=== PATIENT | male | born 1995 | race Caucasian/White ===

== ENCOUNTER 2022-01-06 08:00 | Outpatient (CLI) | payer MEDICAID ==
--- NOTE | 2022-01-06 10:47 | XRAY Report ---
PROCEDURE: Chest 2 View X-Ray INDICATIONS: CHEST PAIN TECHNIQUE: 2 view(s) of the chest. COMPARISON: None. FINDINGS: Surgical changes and devices: None. Lungs and pleura: No pleural effusions or pneumothorax. Lungs are clear. Mediastinum: Mediastinal contours are normal. Heart size is normal. Bones and chest wall: No suspicious bony abnormalities. Soft tissues appear unremarkable. IMPRESSION: No acute cardiopulmonary pathology. Reviewed by: Ashish Diana MD on 01/06/2022 10:46 AM PDT Approved by: Ashish Diana MD on 01/06/2022 10:46 AM PDT Station ID: [id number]
== END 2022-01-06 23:59 | disposition home or self-care (01) ==
LOC: DI.S 08:00
PROVIDERS: ATTEND Physician Assistant Medical
DX: R07.1 Chest pain on breathing (principal)

== ENCOUNTER 2022-01-06 20:19 | Emergency (ER) | payer MEDICAID ==
[2022-01-06 21:38] LABS: BASOPHILS # (AUTO) 0.1 10^3/uL (0.0-0.1); BASOPHILS % (AUTO) 0.5 %; EOSINOPHILS # (AUTO) 0.2 10^3/uL (0.0-0.7); EOSINOPHILS % (AUTO) 2.2 %; HCT - HEMATOCRIT 43.3 % (42.0-52.0); HGB - HEMOGLOBIN 14.1 g/dL (14.0-18.0); LYMPHOCYTES # (AUTO) 1.1 10^3/uL (1.5-3.5); LYMPHOCYTES % (AUTO) 10.6 %; MEAN CORPUSCULAR HGB CONC 32.6 g/dL (32.0-36.0); MEAN CORPUSCULAR VOLUME 95.2 fL (80.0-94.0); MEAN PLATELET VOLUME 9.8 fL (7.4-11.4); MONOCYTES # (AUTO) 1.3 10^3/uL (0.0-1.0); MONOCYTES % (AUTO) 12.7 %; NEUTROPHILS # (AUTO) 7.3 10^3/uL (1.5-6.6); NEUTROPHILS % (AUTO) 73.6 %; PLT - PLATELET COUNT 220 10^3/uL (130-450); RED BLOOD COUNT 4.55 10^6/uL (4.70-6.10); RED CELL DISTRIBUTION WIDTH 12.5 % (12.0-15.0); WHITE BLOOD COUNT 9.9 x10^3/uL (4.8-10.8)
--- NOTE | 2022-01-06 21:42 | ED Physician Documentation ---
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 No dyspnea per se. No recent URI symptoms. Works doing tree removal so physical work, but denies recent particular injury/chest impact.) Timing - onset during: Rest Timing - details: Abrupt onset, Still present (undulating during the day but still present.) Quality: Aching, Sharp, Pain Location: Substernal, Left chest Radiation: Back. No: Jaw, Neck, Abdominal Improved by: No: Rest Worsened by: Inspiration, Position. No: Eating, Movement, Palpation Associated symptoms: Feeling faint / dizzy. No: Shortness of air, Nausea, General Weakness, Palpitations, Cough Similar symptoms before: Has not had sx before Recently seen: Clinic (went to Walk In today and had CXR and ECG that were normal. Presumed pleurisy based on symptoms. Told to take Ibuprofen TID. He is having persistent/worse pain so here for question of other pain med.), Other (Had COVID vaccine 2 years ago (J&J) then Moderna booster last year. Had COVID infection 2 months ago with mild symptoms that resolved over a week. Normal activity ability after.) Review of Systems Constitutional: denies: Fever, Chills, Myalgias, Fatigue, Weight Loss Nose: denies: Rhinorrhea / runny nose, Congestion Throat: denies: Sore throat Cardiac: reports: Chest pain / pressure. denies: Palpitations, Pedal edema, Calf pain Respiratory: denies: Cough, Wheezing GI: denies: Abdominal Pain, Nausea, Vomiting, Diarrhea Skin: denies: Rash, Lesions Neurologic: denies: Generalized weakness, Near syncope PD PAST MEDICAL HISTORY - Past Medical History Cardiovascular: None Respiratory: None Neuro: None Endocrine/Autoimmune: None Psych: Depression (mild in the past and is on citalopram regularly. ) Musculoskeletal: None - Present Medications Home Medications: Ambulatory Orders Medication Instructions Recorded Confirmed Citalopram Hydrobromide 40 mg PO DAILY 01/06/22 01/06/22 [Citalopram HBr] - Allergies Allergies/Adverse Reactions: Allergies Allergy/AdvReac Type Severity Reaction Status Date / Time No Known Drug Allergies Allergy Verified 01/06/22 20:23 - Living Situation Living Situation: reports: With family Living Arrangement: reports: At home - Social History Does the pt smoke?: No Does the pt drink ETOH?: No Does the pt have substance abuse?: No - Family History Family history: reports: CAD. denies: Sudden , Aortic dissection - Immunizations Immunizations are current?: Yes - POLST Patient has POLST: No PD ED PE NORMAL - Vitals Vital signs reviewed: Yes - General General: Alert and oriented X 3, No acute distress, Well developed/nourished - HEENT HEENT: Moist mucous membranes, Pharynx benign - Neck Neck: Supple, no meningeal sign, No adenopathy - Cardiac Cardiac: RRR, No murmur, Other (no chestwall tenderness) - Respiratory Respiratory: No respiratory distress, Clear bilaterally - Abdomen Abdomen: Soft, Non tender, Non distended - Derm Derm: Normal color, Warm and dry - Extremities Extremities: Normal ROM s pain, No edema, No calf tenderness / cord, Other (Note is made of a law enforcement tracking device on the left ankle for probation. He contacted his chief information officer to notify that he will likely be transferred [place] for medical care and was approved.) - Neuro Neuro: Alert and oriented X 3, No motor deficit, Normal speech Eye Opening: Spontaneous Motor: Obeys Commands Verbal: Oriented GCS Score: 15 Results - Vitals Vitals: Vital Signs - 24 hr 01/06/22 01/06/22 01/06/22 20:23 20:30 22:12 Temperature 36.8 C Heart Rate 70 78 76 Respiratory 16 22 21 Rate Blood Pressure 160/80 H 115/72 126/79 O2 Saturation 97 97 97 01/06/22 01/06/22 01/06/22 22:42 23:12 23:30 Temperature Heart Rate 80 69 75 Respiratory 18 20 12 Rate Blood Pressure 131/87 H 114/72 113/72 O2 Saturation 98 95 95 01/07/22 01/07/22 01/07/22 00:00 00:30 01:00 Temperature Heart Rate 69 64 68 Respiratory 17 14 18 Rate Blood Pressure 107/74 115/66 103/77 O2 Saturation 96 96 99 01/07/22 01/07/22 01/07/22 01:30 02:00 02:30 Temperature Heart Rate 60 57 L 67 Respiratory 18 16 20 Rate Blood Pressure 103/67 103/71 104/66 O2 Saturation 96 96 96 01/07/22 01/07/22 01/07/22 03:00 03:30 04:00 Temperature Heart Rate 76 57 L 58 L Respiratory 16 16 14 Rate Blood Pressure 101/66 104/66 103/69 O2 Saturation 96 96 96 01/07/22 01/07/22 01/07/22 04:30 05:00 05:15 Temperature Heart Rate 56 L 64 48 L Respiratory 16 16 19 Rate Blood Pressure 100/69 104/66 101/64 O2 Saturation 96 97 98 01/07/22 01/07/22 01/07/22 05:30 06:00 06:30 Temperature 36.4 C L Heart Rate 72 58 L 64 Respiratory 17 18 20 Rate Blood Pressure 104/56 L 102/63 104/70 O2 Saturation 96 97 94 Oxygen O2 Source Room air - EKG (time done) 20:25 Rate: Rate (enter#) (65) Rhythm: NSR Gorin: Normal Intervals: Normal GA QRS: Normal Ischemia: Normal ST segments, ST elevation c/w repol (nondiagnostic minimal upsloping ST change inferior leads - consider early repol vs inflammatory vs ischemic. No reciprocal changes though.). No: ST elevation c/w ischemia, ST depression - Labs Labs: Laboratory Tests 01/06/22 01/06/22 01/06/22 21:34 21:34 21:34 WBC 9.9 RBC 4.55 L Hgb 14.1 Hct 43.3 MCV 95.2 H MCH 31.0 MCHC 32.6 RDW 12.5 Plt Count 220 MPV 9.8 Neut # (Auto) 7.3 H Lymph # (Auto) 1.1 L Edmunds # (Auto) 1.3 H Eos # (Auto) 0.2 Baso # (Auto) 0.1 Absolute Nucleated RBC 0.00 Nucleated RBC % 0.0 Sodium 140 Potassium 4.7 Chloride 100 L Carbon Dioxide 28 Anion Gap 12.0 BUN 14 Creatinine 1.0 Estimated GFR (MDRD) 89 Glucose 111 H Calcium 9.7 Troponin I High Sens 80463.0 H* C-Reactive Protein 11.7 H B-Natriuretic Peptide SARS-CoV-2 (PCR) 01/06/22 01/06/22 01/07/22 21:34 22:29 01:28 WBC RBC Hgb Hct MCV MCH MCHC RDW Plt Count MPV Neut # (Auto) Lymph # (Auto) Edmunds # (Auto) Eos # (Auto) Baso # (Auto) Absolute Nucleated RBC Nucleated RBC % Sodium Potassium Chloride Carbon Dioxide Anion Gap BUN Creatinine Estimated GFR (MDRD) Glucose Calcium Troponin I High Sens 72987.8 H* C-Reactive Protein B-Natriuretic Peptide 142 H SARS-CoV-2 (PCR) NOT DETECTED 01/07/22 01:28 WBC RBC Hgb Hct MCV MCH MCHC RDW Plt Count MPV Neut # (Auto) Lymph # (Auto) Edmunds # (Auto) Eos # (Auto) Baso # (Auto) Absolute Nucleated RBC Nucleated RBC % Sodium Potassium Chloride Carbon Dioxide Anion Gap BUN Creatinine Estimated GFR (MDRD) Glucose Calcium Troponin I High Sens C-Reactive Protein B-Natriuretic Peptide 260 H SARS-CoV-2 (PCR) - Rads (name of study) chest xray Radiology: Prelim report reviewed (done earlier today at walk in - no acute process), See rad report PD MEDICAL DECISION MAKING - ED course Complexity details: reviewed results (His CRP is notably elevated at 11. His troponin is amazingly elevated at 11,000. Consider AL, though clinical picture more likely c/w inflammatory myocarditis. ), re-evaluated patient (The patient's age would speak against likelihood of atherosclerotic heart disease. Consider potential for coronary artery dissection or inflammatory process such as pericardial myocarditis.), considered differential (pleuritic chest pain without obvious cause, worsening through day. Can get repeat ECG and also labs to evaluate. Initial impression of pleurisy or pericarditis and so initiated Toradol and Decadron presuming those. ), d/w patient, d/w email production consultant (Other facilities in the nearby [facility] did not have any bed availability at this time. We did talk with the transfer center who would put the patient on a wait list and they did have me talk with Dr. Jay Miller who is on-call for cardiology. Dr. Miller places the patient high priority.) ED course: The patient appears well with normal vital signs and no abnormal rhythms. His EKG is minimal changes suggesting inflammatory more likely or early repolarization. However his symptom onset was just abrupt in the past day and his troponin is amazingly elevated at 11,000. I would have concern for progressive myocarditis or potential ischemic process such as dissection. I do feel he needs more appropriate evaluation and hospitalization for concerns of looking for heart failure or increased injury and evaluating for effusion and general heart function global versus local. We do not have echocardiogram available at our facility for 3 more days. We have no MRI availability. We have no stress testing available or cardiology. I feel the patient will likely need transferring and we will [facility] cardiology expresses high concern for the patient assuming myocarditis. To watch the patient for changes in vital signs or dysrhythmias and to contact them back if those develop overnight. Otherwise the hope to have space available in the morning for transfer. We are also contacting other facilities if other beds open sooner as well.A larger facility like or [facility] or such could be more appropriate anyway with the potential of needing further heart testings and even possible myocardial biopsy. At this point we are watching the patient's heart rhythm and blood pressure and degree of symptoms. We will contacted [facility] transfer center if worsening vital signs or symptoms per the direction of Dr. Miller. The patient was doing well through most of the night. He had rather frequent PVCs but did not have any symptoms. Approaching around 5 AM, the patient was noted to have some slowing of heart rate into the upper 40s and 50s from the previous 50s to 60s. Blood pressure has remained slightly soft at 100-110 systolic but did have a reading of chest at 100 systolic. He was given a small fluid bolus and his blood pressure increased a bit. The patient is not having any symptoms of chest pain or lightheadedness with this. Per the direction of cardiology, I did contact the transfer center again with this update on vital signs and general mild bradycardia. The degree of PVCs has increased as well to approximately 8 to 10/min. We will see if they wish a more expedited transfer. 06:30 The calls and states they expect discharges in the next hour or 2 and the patient has been prioritized for transfer by cardiology. They will call back with a bed assignment shortly later this morning. The patient remained stable with heart rate ranging from low 50s to 60 and blood pressure last reading 104 systolic. No chest discomfort at this time. He is stable for transfer by ALS. - Critical Care Time(min): 50 Time Includes: Direct patient care, Reassess patient, Document care, Coordinate care, Medical consult, See progress note Data interpretation: Labs, Pulse ox, CXR, See progress note Procedures excluded from critical care time: EKG Departure - Departure Disposition: 02 Transfer Acute Care Hosp Clinical Impression: Pleuritic chest pain, Elevated troponin, Chest pain, rule out acute myocardial infarction, Bradycardia, Acute myopericarditis Condition: Stable Record reviewed to determine appropriate education?: Yes
[2022-01-06] MEDS ORDERED: CHERRY SYRUP 10 ML UDC PO ONE (21:56)
[2022-01-06] MEDS ORDERED: HYDROcod/ACET 5/325 Prepack 4 PO STA (21:56)
[2022-01-06] MEDS ORDERED: HYDROcod/ACETAM 5/325 MG TABLET PO STA (21:56)
[2022-01-06] MEDS ORDERED: DEXAMETHASONE 10 MG/ML VIAL PO STA (21:56)
[2022-01-06 22:04] LABS: CALCIUM 9.7 mg/dL (8.5-10.3); CRP - C-REACTIVE PROTEIN 11.7 mg/dL (0-1.0); POTASSIUM 4.7 mmol/L (3.5-5.0)
[2022-01-06] MEDS ORDERED: KETOROLAC 15 MG/ML VIAL IVP STA (22:24)
[2022-01-06] MEDS ORDERED: ASPIRIN CHEW 81 MG TABLET PO STA (22:36)
[2022-01-07] MEDS ORDERED: SODIUM CHLORIDE 0.9% 1,000 ML IV STA (01:22)
[2022-01-07] MEDS ORDERED: SODIUM CHLORIDE 0.9% 500 ML IV STA (04:49)
--- NOTE | 2022-01-07 08:02 | ED Physician Documentation ---
ED Addendum - Addendum Addendum: 01/07/22 07:58 26 y/o male with pleuritic chest pain has markedly elevated troponin with elevated inflammatory markers, a normal EKG and down trending vitals is awaiting transfer to the [facility] at shift change. He has been diagnosed with maximo- carditis/myocarditis. Bedside ultrasound is without evidence of maximo-cardial effusion but with dilated left ventricle.
[2022-01-07] MEDS ORDERED: HYDROcod/ACETAM 5/325 MG TABLET PO STA (14:23)
[2022-01-07 15:50] VITALS: BP 107/63
--- OUTSIDE RECORDS SUMMARY | 2022-01-12 15:12 | EXTERNAL MEDICAL SUMMARY RPT | Continuity of Care Document ---
:1995 Author Organization [facility] Address [address] [place] [address] Phone Allergies No information. Encounters No information. Functional Status No information. Immunizations No information. Medications date description facility [id number] citalopram Walk[facility] [id number] citalopram [facility] Problems No information. Procedures date description facility [id number] Visit Code Hold [facility] [phone] EKG Office Complete [facility] Results/Labs No information. Social History date description facility [id number] Never smoker [facility] Vital Signs date measurement value units [id number]+0000 BMI BMI 32.13 kg/m2 [id number]+0000 BP_diastolic BP_diastolic 75 mm[H g] [id number]+0000 BP_systolic BP_systolic 115 mm[Hg] 61104661048062+0000 heart_rate heart_rate 68 /min [id number]+0000 height_metric height_metric 195.58 cm [id number]+0000 height_standard height_standard 77 in [id number]+0000 respiration_rate respiration_rate 15 /min [id number]+0000 temperature_metric temperature_metric 36.94 C [id number]+0000 temperature_standard temperature_standard 9 8.5 F [id number]+0000 weight_metric weight_metric 122.47 kg [id number]+0000 weight_standard weight_standard 270 lb
== END 2022-01-07 16:15 | disposition short-term general hospital (02) ==
LOC: ED 20:19
DX: I30.9 Acute pericarditis, unspecified (principal); R00.1 Bradycardia, unspecified; R07.81 Pleurodynia; R77.8 Other specified abnormalities of plasma proteins; Z20.822 Contact with and (suspected) exposure to COVID-19; R07.1 Chest pain on breathing
CPT/HCPCS: 36415; 71046; 80048; 83880; 84484; 85025; 86140; 87635; 93005; 96361; 96374; 99285; 99291; A9270

== ENCOUNTER 2022-10-10 06:30 | Emergency (ER) | payer MEDICAID ==
[2022-10-10] MEDS ORDERED: ONDANSETRON 4 MG/2 ML VIAL IVP STA (06:57)
[2022-10-10] MEDS ORDERED: ONDANSETRON 4 MG/2 ML VIAL ONE (07:01)
[2022-10-10] MEDS ORDERED: SODIUM CHLORIDE 0.9% 1,000 ML IV ONE (07:01)
[2022-10-10 07:18] LABS: ALBUMIN 4.9 g/dL (3.2-5.5); ALBUMIN/GLOBULIN RATIO 1.4 (1.0-2.2); BILIRUBIN,TOTAL 0.6 mg/dL (0.2-1.0); CALCIUM 9.4 mg/dL (8.5-10.3); POTASSIUM 3.6 mmol/L (3.5-5.0); TOTAL PROTEIN 8.3 g/dL (6.7-8.2)
[2022-10-10 07:21] LABS: BASOPHILS # (AUTO) 0.1 10^3/uL (0.0-0.1); BASOPHILS % (AUTO) 0.5 %; EOSINOPHILS # (AUTO) 0.1 10^3/uL (0.0-0.7); EOSINOPHILS % (AUTO) 0.5 %; HCT - HEMATOCRIT 48.6 % (42.0-52.0); HGB - HEMOGLOBIN 15.9 g/dL (14.0-18.0); LYMPHOCYTES % (AUTO) 7.8 %; MEAN CORPUSCULAR HEMOGLOBIN 30.2 pg (27.0-31.0); MEAN CORPUSCULAR HGB CONC 32.7 g/dL (32.0-36.0); MEAN CORPUSCULAR VOLUME 92.2 fL (80.0-94.0); MONOCYTES # (AUTO) 0.6 10^3/uL (0.0-1.0); MONOCYTES % (AUTO) 4.7 %; NEUTROPHILS # (AUTO) 11.2 10^3/uL (1.5-6.6); PLT - PLATELET COUNT 272 10^3/uL (130-450); RED BLOOD COUNT 5.27 10^6/uL (4.70-6.10); RED CELL DISTRIBUTION WIDTH 12.4 % (12.0-15.0)
[2022-10-10] MEDS ORDERED: HYDROmorphone 0.5 MG/0.5 ML SYRINGE IVP STA (07:25)
[2022-10-10] MEDS ORDERED: DROPERIDOL 5 MG/2 ML VIAL IVP STA (07:25)
--- NOTE | 2022-10-10 07:31 | ED Physician Documentation ---
PD HPI NVD - Stated complaint Stated Complaint: NAUSEA, DEHYDRATION, FEVER - Chief complaint Chief Complaint: Abd Pain - History obtained from History obtained from: Patient, Family - Additonal information Additional information: The patient comes to the emergency department with chief complaint of nausea vomiting and diarrhea that started around midnight last night. He states he was feeling fine when he went to bed last night. He has not had any known sick contacts and nobody who ate the same food as him is sick. He reports chills but no fevers. No respiratory symptoms. He states he gets waves of strong cramping in his abdomen, especially before he is going to vomit or have diarrhea. He denies any other complaints at this time. He states he is otherwise pretty healthy. PD PAST MEDICAL HISTORY - Past Medical History Past Medical History: Yes Cardiovascular: None, Other Respiratory: None Neuro: None Endocrine/Autoimmune: None Psych: Depression Musculoskeletal: None Other Past Medical History: Myocarditis - Past Surgical History Past Surgical History: No - Present Medications Home Medications: Ambulatory Orders Medication Instructions Recorded Confirmed Citalopram Hydrobromide 40 mg PO DAILY 01/06/22 10/10/22 [Citalopram HBr] Ondansetron Odt [Zofran] 4 mg TL Q6H PRN #10 tablet 10/10/22 Prochlorperazine Supp [Compazine 25 mg NM BID PRN #10 supp 10/10/22 Supp] - Allergies Allergies/Adverse Reactions: Allergies Allergy/AdvReac Type Severity Reaction Status Date / Time No Known Drug Allergies Allergy Verified 10/10/22 06:38 - Social History Does the pt smoke?: No Smoking Status: Never smoker Does the pt drink ETOH?: No Does the pt have substance abuse?: No Substance Use and Type: Marijuana - Immunizations Immunizations are current?: Yes - POLST Patient has POLST: No PD ED PE NORMAL - Vitals Vital signs reviewed: Yes - General General: Alert and oriented X 3, No acute distress, Well developed/nourished - HEENT HEENT: Atraumatic, PERRL, EOMI, Moist mucous membranes - Neck Neck: Supple, no meningeal sign - Cardiac Cardiac: RRR, No murmur - Respiratory Respiratory: No respiratory distress, Clear bilaterally - Abdomen Abdomen: Soft, Non tender, Non distended - Derm Derm: Normal color, No rash, Other (The patient sure it is wet from sweat but his skin is otherwise dry.) - Extremities Extremities: No deformity - Neuro Neuro: Alert and oriented X 3, Other (Grossly intact) - Psych Psych: Normal mood, Normal affect Results - Vitals Vitals: Vital Signs - 24 hr 10/10/22 10/10/22 06:38 07:41 Temperature 36.7 C Heart Rate 61 61 Respiratory 20 18 Rate Blood Pressure 143/79 H 158/101 H O2 Saturation 100 100 Oxygen O2 Source Room air - Labs Labs: Laboratory Tests 10/10/22 10/10/22 10/10/22 06:52 06:52 07:55 WBC 13.0 H RBC 5.27 Hgb 15.9 Hct 48.6 MCV 92.2 MCH 30.2 MCHC 32.7 RDW 12.4 Plt Count 272 MPV 10.0 Neut # (Auto) 11.2 H Lymph # (Auto) 1.0 L Cuming # (Auto) 0.6 Eos # (Auto) 0.1 Baso # (Auto) 0.1 Absolute Nucleated RBC 0.00 Nucleated RBC % 0.0 Sodium 139 Potassium 3.6 Chloride 103 Carbon Dioxide 24 Anion Gap 12.0 BUN 11 Creatinine 1.0 Estimated GFR (MDRD) 88 L Glucose 146 H Calcium 9.4 Total Bilirubin 0.6 AST 21 ALT 19 Alkaline Phosphatase 44 Total Protein 8.3 H Albumin 4.9 Globulin 3.4 Albumin/Globulin Ratio 1.4 Lipase 46 Urine Color DARK YELLOW Urine Clarity CLEAR Urine pH 6.0 Ur Specific [place] >=1.030 H Urine Protein 30 H Urine Glucose (UA) NEGATIVE Urine Ketones 15 H Urine Occult Blood NEGATIVE Urine Nitrite NEGATIVE Urine Bilirubin NEGATIVE Urine Urobilinogen 0.2 (NORMAL) Ur Leukocyte Esterase NEGATIVE Urine RBC None Seen Urine WBC 0-3 Ur Squamous Epith Cells NONE SEEN Urine Bacteria None Seen Ur Microscopic Review INDICATED Urine Culture Comments NOT INDICATED PD Medical Decision Making - ED course Complexity details: reviewed results, re-evaluated patient, considered differential, d/w patient, d/w family ED course: The patient was treated symptomatically in the emergency department with IV fluids, Zofran, and later, droperidol and a very small dose of Dilaudid. The patient was noted to begin feeling agitated after the droperidol, and was given a dose of Benadryl for this with improvement in symptoms. His laboratory studies were unremarkable. Patient reported feeling better and we have discussed symptomatic management at home, including a clear liquid diet and the timeline for restarting eating. We have discussed the usual indications for return. Departure - Departure Disposition: 01 Home, Self Care Clinical Impression: Gastroenteritis Condition: Stable Instructions: ED Gastroenteritis Viral Prescriptions: Prochlorperazine Supp [Compazine Supp] 25 mg NM BID PRN #10 supp PRN Reason: Nausea / Vomiting Ondansetron Odt [Zofran] 4 mg TL Q6H PRN #10 tablet PRN Reason: Nausea / Vomiting Comments: Your laboratory studies look good, and your abdominal exam is benign in terms of concern for a more serious condition causing your symptoms. Your symptoms are very much consistent with the viral illnesses that we have seen going around for the last several weeks, causing "the stomach flu". In general, although they are miserable, these illnesses will pass on their own and generally just need support in the way of antinausea medicine and clear liquid diet. As we have discussed, you should not jones to get back to eating. If your stomach is still significantly nauseated, it is an indicator that it is not ready for food yet. You have been hydrated with an entire liter of electrolyte-containing solution here in the emergency department and should give your stomach a complete rest from food or liquid for the next several hours. If after that, you feel ready to try a couple of small sips at a time of water or an electrolyte drink, then you may do so. Take just a couple of sips and then wait 15 or 20 minutes. If you do not vomit after that period of time, you may take another couple of sips. If you are able to do several rounds of this without significant nausea or without vomiting, then you may begin to bring the sips closer together by a few minutes. Please do not try to eat today. Once you have been able to tolerate clear liquids for 24 hours without vomiting, you may try simple starches such as saltine crackers top Ramen noodles, or white rice. You will likely only be able to eat in small portions initially, but you may advance your diet as tolerated from there. In general, your symptoms will be expected to last for anywhere from a few days to a week, and you should start to notice some improvement after the first 48 hours. A prescription for 2 different nausea medication options has been electronically transmitted to the [facility] in [place], your pharmacy of choice on record.
[2022-10-10 07:41] VITALS: BP 158/101
[2022-10-10] MEDS ORDERED: diphenhydrAMINE INJ 50 MG/ML VIAL IVP STA (07:57)
[2022-10-10 08:02] LABS: BILIRUBIN,URINE NEGATIVE (NEGATIVE); GLUCOSE, URINE (UA) NEGATIVE (NEGATIVE); KETONES,URINE (UA) 15 mg/dL (NEGATIVE); LEUKOCYTE ESTERASE, URINE NEGATIVE (NEGATIVE); NITRITE,URINE NEGATIVE (NEGATIVE); OCCULT BLOOD,URINE NEGATIVE (NEGATIVE); PROTEIN,URINE 30 mg/dL (NEGATIVE); UROBILINOGEN,URINE 0.2 (NORMAL) E.U./dL (NORMAL)
[2022-10-10 08:07] LABS: CLARITY,URINE CLEAR (CLEAR)
[2022-10-10 08:16] LABS: BACTERIA,URINE None Seen /HPF (None Seen); RBC,URINE None Seen /HPF (0-5); SQUAMOUS EPITHELIAL CELL,UR NONE SEEN (<= Few); WBC,URINE 0-3 /HPF (0-3)
== END 2022-10-10 08:50 | disposition home or self-care (01) ==
LOC: ED 06:30
DX: K52.9 Noninfective gastroenteritis and colitis, unspecified (principal)
CPT/HCPCS: 36415; 80053; 81001; 83690; 85025; 96361; 96374; 96375; 99283; 99285; J1170; J1200; 81003; 87086